=== PATIENT | female | born 1995 | race Caucasian/White ===

== ENCOUNTER 2018-06-15 18:31 | Emergency (ER) | payer BC ==
[2018-06-15] MEDS ORDERED: ESCI20TA38 PO (18:59)
--- NOTE | 2018-06-15 18:59 | ER Report ---
History and Physical Time Seen By MD: 18:45 Hx. of Stated Complaint: PATIENT STATES THAT HE HAS A BAD HEAD ACHE AND JAW PAIN WELL; PATIENT ALSO STATES SHE HAS INTERMITTENT CHEST PAIN WELL AND NUMBNESS IN HER FINGERS AND TOES HPI/ROS CHIEF COMPLAINT: Headache, chest pain, hand numbness, foot numbness, jaw pain HISTORY OF PRESENT ILLNESS: 22-year-old female patient presents to emergency room with complaint of headache, chest pain, hand numbness, foot numbness, jaw pain. Patient states that this been going on for the past week. She states it seems to be getting worse. Patient states that she was seen in the emergency room on the with a urinary tract infection. She was given pain medication as well as antibiotics and sent home on antibiotics. Patient states that does feel better at this time. She denies having any fevers, however states she has had chills. Patient's noticed that she has some chest pain in the right upper and left lower chest. 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 She states that she's noticed that she is very lightheaded when she stands up. Patient has been taking antibiotics as directed. Patient states that she's had numbness to both her hands and her feet. REVIEW OF SYSTEMS: Respiratory: Patient has been having cough associated with being sick Cardiovascular: As noted above Gastrointestinal: No vomiting, no abdominal pain. Musculoskeletal: No back pain. Allergies: Coded Allergies: No Known Drug Allergies (Unverified , 06/15/18) Home Meds Active Scripts Ondansetron Hcl (ZOFRAN) 4 Mg Tablet, 4 MG PO Q6H PRN for NAUSEA/VOMITING, #20 TAB Prov:RONALD ORTEZ [employer] 06/15/18 Ketorolac Tromethamine (KETOROLAC TROMETHAMINE) 10 Mg Tab, 10 MG PO Q6H, #20 TAB Prov:RONALD ORTEZ [facility] 06/15/18 Reported Medications Escitalopram Oxalate (LEXAPRO) 20 Mg Tablet, 10 MG PO QDAY, TAB 06/15/18 Past Medical/Surgical History Patient has a past medical history of pots syndrome, depression. Patient has surgical history of tonsillectomy. Reviewed Nurses Notes: Yes Hx Substance Use Disorder: No Constitutional Vital Sign - Last 24 Hours 06/15/18 06/15/18 06/15/18 06/15/18 18:40 18:43 18:46 19:00 Temp 97.5 Pulse 74 69 Resp 18 16 B/P (MAP) 119/83 (95) 119/83 114/72 (86) Pulse Ox 97 97 O2 Delivery Room Air 06/15/18 06/15/18 06/15/18 06/15/18 19:01 19:06 19:12 19:14 Pulse 61 65 Resp 14 16 B/P (MAP) 116/77 (90) 120/83 (95) Pulse Ox 98 06/15/18 06/15/18 06/15/18 06/15/18 19:16 19:20 19:21 19:51 Pulse 65 64 64 66 76 Resp 21 16 B/P (MAP) 114/86 (95) 116/77 (90) 120/83 (95) 114/86 (95) Pulse Ox 95 96 06/15/18 06/15/18 06/15/18 06/15/18 20:00 20:06 20:21 20:26 Pulse 62 63 65 Resp 18 12 23 B/P (MAP) 110/71 (84) Pulse Ox 95 94 97 06/15/18 06/15/18 06/15/18 06/15/18 20:30 20:41 20:46 21:00 Pulse 65 63 Resp 21 14 B/P (MAP) 110/78 (89) 101/68 (79) Pulse Ox 94 93 06/15/18 06/15/18 21:01 21:06 Pulse 60 61 Resp 21 16 Pulse Ox 93 91 Physical Exam General Appearance: The patient is alert, has no immediate need for airway protection and no current signs of toxicity. Eyes: Pupils equal and round no injection. Respiratory: Chest is non tender, lungs are clear to auscultation. Cardiac: regular rate and rhythm Gastrointestinal: Abdomen is soft and non tender, no masses, bowel sounds normal. Musculoskeletal: Neck: Neck is supple and non tender. Extremities have full range of motion and are non tender. Skin: No rashes or lesions. Neuro: Patient is alert and oriented 4, cranial nerves II through XII grossly intact. DIFFERENTIAL DIAGNOSIS: After history and physical exam differential diagnosis was considered for headache including but not limited to subarachnoid hemorrhage, migraine headache, tension headache and infectious causes such as meningitis, pharyngitis and sinusitis. Included differential is sinusitis, viral syndrome, anxiety. Medical Decision Making Data Points Result Diagram: 06/15/18 1859 06/15/181858 Laboratory Hematology Test 06/15/18 18:50 06/15/18 18:59 Urine Color Yellow Urine Clarity Clear Urine pH 6.0 pH (4.8-9.5) Urine Specific [place] 1.012 Urine Protein Negative mg/dL (NEGATIVE) Urine Glucose (UA) Negative mg/dL (NEGATIVE) Urine Ketones Negative mg/dL (NEGATIVE) Urine Blood Negative (NEGATIVE) Urine Nitrite Negative (NEGATIVE) Urine Bilirubin Negative (NEGATIVE) Urine Urobilinogen Negative mg/dL (0.2-1.9) Urine Leukocyte Esterase Trace (NEGATIVE) Urine RBC 1 /HPF (0-2/HPF) Urine WBC 4 /HPF (0-5/HPF) Urine Squamous Epithelial Cells Many /LPF (</=FEW) Urine Bacteria Negative /HPF (NONE-FEW) Urine Mucus None /HPF (NONE-FEW) Red Blood Count 4.45 M/uL (4.17-5.56) Mean Corpuscular Volume 91.1 fL (80.0-96.0) Mean Corpuscular Hemoglobin 30.6 pg (26.0-33.0) Mean Corpuscular Hemoglobin Concent 33.6 g/dL (32.0-36.0) Red Cell Distribution Width 12.9 % (11.5-14.5) Mean Platelet Volume 7.9 fL (7.2-11.1) Neutrophils (%) (Auto) 74.8 % (39.4-72.5) Lymphocytes (%) (Auto) 18.3 % (17.6-49.6) Monocytes (%) (Auto) 4.1 % (4.1-12.4) Eosinophils (%) (Auto) 1.5 % (0.4-6.7) Basophils (%) (Auto) 1.3 % (0.3-1.4) Nucleated RBC Relative Count (auto) 0.0 /100WBC Neutrophils # (Auto) 3.9 K/uL (2.0-7.4) Lymphocytes # (Auto) 0.9 K/uL (1.3-3.6) Monocytes # (Auto) 0.2 K/uL (0.3-1.0) Eosinophils # (Auto) 0.1 K/uL (0.0-0.5) Basophils # (Auto) 0.1 K/uL (0.0-0.1) Nucleated RBC Absolute Count (auto) 0.00 K/uL D-Dimer Quantitative (PE/DVT) 0.42 ug/ml (0-0.50) Sodium Level 140 mmol/L (137-145) Potassium Level 3.5 mmol/L (3.5-5.0) Chloride Level 105 mmol/L (98-107) Carbon Dioxide Level 26 mmol/L (22-31) Blood Urea Nitrogen 6 mg/dl (7-18) Creatinine 0.50 mg/dl (0.52-1.04) Glomerular Filtration Rate Calc > 60.0 Random Glucose 115 mg/dl (75-110) Calcium Level 9.2 mg/dl (8.4-10.2) Total Bilirubin 0.2 mg/dl (0.2-1.3) Aspartate Amino Transf (AST/SGOT) 21 U/L (0-35) Alanine Aminotransferase (ALT/SGPT) 23 U/L (0-56) Alkaline Phosphatase 69 U/L (0-126) Troponin I < 0.012 ng/ml Total Protein 7.7 g/dl (6.3-8.2) Albumin 3.9 g/dl (3.5-5.0) Human Chorionic Gonadotropin, Qual Negative (NEGATIVE) Chemistry Test 06/15/18 18:50 06/15/18 18:59 Urine Color Yellow Urine Clarity Clear Urine pH 6.0 pH (4.8-9.5) Urine Specific [place] 1.012 Urine Protein Negative mg/dL (NEGATIVE) Urine Glucose (UA) Negative mg/dL (NEGATIVE) Urine Ketones Negative mg/dL (NEGATIVE) Urine Blood Negative (NEGATIVE) Urine Nitrite Negative (NEGATIVE) Urine Bilirubin Negative (NEGATIVE) Urine Urobilinogen Negative mg/dL (0.2-1.9) Urine Leukocyte Esterase Trace (NEGATIVE) Urine RBC 1 /HPF (0-2/HPF) Urine WBC 4 /HPF (0-5/HPF) Urine Squamous Epithelial Cells Many /LPF (</=FEW) Urine Bacteria Negative /HPF (NONE-FEW) Urine Mucus None /HPF (NONE-FEW) White Blood Count 5.2 k/uL (4.5-11.0) Red Blood Count 4.45 M/uL (4.17-5.56) Hemoglobin 13.6 g/dL (12.0-16.0) Hematocrit 40.6 % (34.0-47.0) Mean Corpuscular Volume 91.1 fL (80.0-96.0) Mean Corpuscular Hemoglobin 30.6 pg (26.0-33.0) Mean Corpuscular Hemoglobin Concent 33.6 g/dL (32.0-36.0) Red Cell Distribution Width 12.9 % (11.5-14.5) Platelet Count 381 K/uL (150-450) Mean Platelet Volume 7.9 fL (7.2-11.1) Neutrophils (%) (Auto) 74.8 % (39.4-72.5) Lymphocytes (%) (Auto) 18.3 % (17.6-49.6) Monocytes (%) (Auto) 4.1 % (4.1-12.4) Eosinophils (%) (Auto) 1.5 % (0.4-6.7) Basophils (%) (Auto) 1.3 % (0.3-1.4) Nucleated RBC Relative Count (auto) 0.0 /100WBC Neutrophils # (Auto) 3.9 K/uL (2.0-7.4) Lymphocytes # (Auto) 0.9 K/uL (1.3-3.6) Monocytes # (Auto) 0.2 K/uL (0.3-1.0) Eosinophils # (Auto) 0.1 K/uL (0.0-0.5) Basophils # (Auto) 0.1 K/uL (0.0-0.1) Nucleated RBC Absolute Count (auto) 0.00 K/uL D-Dimer Quantitative (PE/DVT) 0.42 ug/ml (0-0.50) Glomerular Filtration Rate Calc > 60.0 Calcium Level 9.2 mg/dl (8.4-10.2) Total Bilirubin 0.2 mg/dl (0.2-1.3) Aspartate Amino Transf (AST/SGOT) 21 U/L (0-35) Alanine Aminotransferase (ALT/SGPT) 23 U/L (0-56) Alkaline Phosphatase 69 U/L (0-126) Troponin I < 0.012 ng/ml Total Protein 7.7 g/dl (6.3-8.2) Albumin 3.9 g/dl (3.5-5.0) Human Chorionic Gonadotropin, Qual Negative (NEGATIVE) Coagulation Test 06/15/18 18:59 D-Dimer Quantitative (PE/DVT) 0.42 ug/ml Urinalysis Test 06/15/18 18:50 Urine Color Yellow Urine Clarity Clear Urine pH 6.0 pH (4.8-9.5) Urine Specific [place] 1.012 Urine Protein Negative mg/dL (NEGATIVE) Urine Glucose (UA) Negative mg/dL (NEGATIVE) Urine Ketones Negative mg/dL (NEGATIVE) Urine Blood Negative (NEGATIVE) Urine Nitrite Negative (NEGATIVE) Urine Bilirubin Negative (NEGATIVE) Urine Urobilinogen Negative mg/dL (0.2-1.9) Urine Leukocyte Esterase Trace (NEGATIVE) Urine RBC 1 /HPF (0-2/HPF) Urine WBC 4 /HPF (0-5/HPF) Urine Squamous Epithelial Cells Many /LPF (</=FEW) Urine Bacteria Negative /HPF (NONE-FEW) Urine Mucus None /HPF (NONE-FEW) EKG/Imaging EKG Interpretation 12 lead EKG: Rhythm: normal sinus rhythm [place]: normal QRS: normal ST segments: normal Imaging Examination: CHEST PA AND LAT Comparison: None. History: Chest Pain Findings: Cardiac and hilar contour size is normal. Lungs are clear. No consolidation, nodule, or peribronchial inflammation. No pneumothorax, edema, or effusion. Osseous structures are intact. IMPRESSION: Negative chest. Report Dictated By: Chema Mina MD at 06/15/2018 7:59 PM Report E-Signed By: Chema Mina MD at 06/15/2018 8:00 PM EXAMINATION: CT HEAD WITHOUT CONTRAST COMPARISON: None available HISTORY: headache PROCEDURE: Noncontrast CT from the vertex through the skull base. One of the following dose optimization techniques was utilized in the performance of this exam: Automated exposure control; adjustment of the mA and/or kV according to the patient's size; or use of an iterative reconstruction technique. Specific details can be referenced in the facility's radiology CT exam operational policy. FINDINGS: Brain volume: Age-appropriate. Hemorrhage/extra-axial fluid: None. Mass effect/midline shift/edema: None. Ischemia: Frances-white differentiation is preserved. Ventricles and basal cisterns: Within normal limits. Posterior fossa: Negative. Vessels: Negative. Calvarium, skull base, and scalp: Negative. Visualized sinuses and orbits: Within normal limits. IMPRESSION: Negative noncontrast head CT. Report Dictated By: Chema Mina MD at 06/15/2018 7:55 PM Report E-Signed By: Chema Mina MD at 06/15/2018 7:59 PM ED Course/Re-evaluation ED Course Patient was admitted to an exam room, history and physical were obtained. Differential diagnoses were considered. On examination lungs are clear, heart is regular, abdomen is soft and nontender. Patient does have some tenderness to the right upper chest in the right lower ribs. A CBC, CMP, troponin, EKG, chest x- ray, CT scan of the head were done. Neurologically the patient was alert and oriented 4, cranial nerves II through XII grossly intact. Chest x-ray was unremarkable, CT scan of the head was negative. Labs were unremarkable. I discussed findings with the patient. I believe that she likely has a viral syndrome. I will this was causing her chest pain as well as her headache as well as some anxiety which is causing the numbness to hands and feet. Patient was given a dose of Toradol here in the emergency room. She had improvement of her headache. Go ahead and discharge her home with a prescription for Zofran as well as Toradol. She is to follow-up with her primary care provider in a week if there's no improvement. She is return to emergency room if condition worsens. Patient verbalized understanding and agreement with plan. Decision to Disposition Date: Jun 15, 2018 Decision to Disposition Time: 21:06 Depart Departure Latest Vital Signs Vital Signs Date Time Temp Pulse Resp B/P (MAP) Pulse Ox O2 Delivery O2 Flow Rate FiO2 06/15/18 21:06 61 16 91 06/15/18 21:00 101/68 (79) 06/15/18 18:43 97.5 Room Air Impression: Primary Impression: Viral syndrome Additional Impression: Headache Condition: Improved Disposition: HOME OR SELF-CARE New Scripts Ondansetron Hcl (ZOFRAN) 4 Mg Tablet 4 MG PO Q6H PRN for NAUSEA/VOMITING, #20 TAB Prov: RONALD ORTEZ 06/15/18 Ketorolac Tromethamine (KETOROLAC TROMETHAMINE) 10 Mg Tab 10 MG PO Q6H, #20 TAB Prov: RONALD ORTEZ 06/15/18 Patient Instructions: Viral Syndrome (ED) Additional Instructions: Increase fluid intake. Get plenty of rest. Take Tylenol as needed for pain in addition to the Toradol. This should pass in 2-5 days. You can limit your activity by how you are feeling. Follow up with your primary care provider in the next week if there is no improvement. Return to the ER if condition worsens. Problem Qualifiers Additional Impression: Headache Headache type: other headache syndrome Qualified Codes: G44.89 - Other headache syndrome RONALD ORTEZ Jun 15, 2018 18:59
[2018-06-15] MEDS ORDERED: NS(*) 0.9% 1000 ML BAG 1,000 ML IV ONE (19:00)
[2018-06-15 19:10] LABS: PLATELET COUNT, AUTOMATED 381 K/uL (150-450)
[2018-06-15] MEDS ORDERED: ANAPHYLAXIS KIT 1 EA ONE (19:17)
--- NOTE | 2018-06-15 19:20 | EKG ---
FACILITY: [facility] PATIENT NAME: MAREK FONTANA : [id number] MR: [id number] V: [id number] EXAM DATE: ORDERING PHYSICIAN: RONALD ORTEZ TECHNOLOGIST: SIMONA Test Reason : CHEST PAIN Blood Pressure : / mmHG Vent. Rate : 063 BPM Atrial Rate : 063 BPM P-R Int : 168 ms QRS Dur : 092 ms QT Int : 424 ms P-R-T Axes : 062 069 033 degrees QTc Int : 433 ms Normal sinus rhythm Normal ECG No previous ECGs available Confirmed by MABLE ROME ([id number]) on 06/16/2018 6:45:34 AM Referred By: Confirmed By:MABLE ROME
--- NOTE | 2018-06-15 20:03 | RADIOLOGY IMAGING REPORT ---
FACILITY: [facility] PATIENT NAME: Helen Smart : 1995 MR: [id number] V: [id number] EXAM DATE: ORDERING PHYSICIAN: RONALD ORTEZ TECHNOLOGIST: Location: [facility] Patient: Helen Smart : 1995 Visit/Account:[id number] Date of Sevice: 06/15/2018 EXAMINATION: CT HEAD WITHOUT CONTRAST COMPARISON: None available HISTORY: headache PROCEDURE: Noncontrast CT from the vertex through the skull base. One of the following dose optimizat ion techniques was utilized in the performance of this exam: Automated exposure control; adjustment o f the mA and/or kV according to the patient's size; or use of an iterative reconstruction technique. Specific details can be referenced in the facility's radiology CT exam operational policy. FINDINGS: Brain volume: Age-appropriate. Hemorrhage/extra-axial fluid: None. Mass effect/midline shift/edema: None. Ischemia: Frances-white differentiation is preserved. Ventricles and basal cisterns: Within normal limits. Posterior fossa: Negative. Vessels: Negative. Calvarium, skull base, and scalp: Negative. Visualized sinuses and orbits: Within normal limits. IMPRESSION: Negative noncontrast head CT. Report Dictated By: Chema Mina MD at 06/15/2018 7:55 PM Report E-Signed By: Chema Mina MD at 06/15/2018 7:59 PM WSN:[email or web address]
--- NOTE | 2018-06-15 20:03 | RADIOLOGY IMAGING REPORT ---
FACILITY: [facility] [place] PATIENT NAME: Helen Smart : 1995 MR: [id number] V: [id number] EXAM DATE: ORDERING PHYSICIAN: RONALD ORTEZ TECHNOLOGIST: Location: [facility] Patient: Helen Smart : 1995 Visit/Account:[id number] Date of Sevice: 06/15/2018 Examination: CHEST PA AND LAT Comparison: None. History: Chest Pain Findings: Cardiac and hilar contour size is normal. Lungs are clear. No consolidation, nodule, or p eribronchial inflammation. No pneumothorax, edema, or effusion. Osseous structures are intact. IMPRESSION: Negative chest. Report Dictated By: Chema Mina MD at 06/15/2018 7:59 PM Report E-Signed By: Chema Mina MD at 06/15/2018 8:00 PM WSN:[email or web address]
[2018-06-15] MEDS ORDERED: KETOROLAC 15 MG/ML VIAL IVP ONE (20:30)
[2018-06-15] MEDS ORDERED: ONDANSETRON 4 MG/2 ML VIAL IVP ONE (20:30)
[2018-06-15 21:00] VITALS: BP 101/68
[2018-06-15] MEDS ORDERED: KET10 PO (21:09)
[2018-06-15] MEDS ORDERED: ONDA4TAB97 PO (21:09)
== END 2018-06-15 21:17 | disposition home or self-care (01) ==
LOC: ER 18:37
DX: B34.9 Viral infection, unspecified (principal); G44.89 Other headache syndrome
CPT/HCPCS: 70450; 71046; 81001; 84484; 84703; 85025; 85379; 93005; 96361; 96374; 96375; 99284; J1885; J2405; J7030; 82040; 82247; 82310; 82374; 82435; 82565; 82947; 84075; 84132; 84155; 84295; 84450; 84460; 84520